=== PATIENT | female | born 1980 | race Two or more races ===

== ENCOUNTER 2019-07-13 21:35 | Emergency (ER) | payer OTHER ==
[~2019-07-13] VITALS: Ht 165.1 cm; Wt 96.5 kg
[2019-07-13 21:38] VITALS: BP 164/94
--- NOTE | 2019-07-13 21:50 | NUR ---
PT SITTING UP ON GURNEY, MONITORS APPLIED, SIDERAILS UP X2, CALL LIGHT WITHIN REACH. AWAITING ERP EVAL AND ORDERS
--- NOTE | 2019-07-13 22:08 | NUR ---
XRAY AT PT'S BEDSIDE
--- NOTE | 2019-07-13 22:52 | NUR ---
EMT AT PT'S BEDSIDE FOR SPLINT APPLICATION
--- NOTE | 2019-07-13 22:54 | NUR ---
Patient/Caregiver given discharge instructions and they have confirmed that they understand the instructions. Patient ambulatory with steady gait.
== END 2019-07-13 22:56 | disposition home or self-care (01) ==
LOC: ED 22:03
DX: S63.634A Sprain of interphalangeal joint of right ring finger, initial encounter (principal); W21.00XA Struck by hit or thrown ball, unspecified type, initial encounter; Y93.89 Activity, other specified; Y92.009 Unspecified place in unspecified non-institutional (private) residence as the place of occurrence of the external cause; Y99.8 Other external cause status
CPT/HCPCS: 29130; 99283